=== PATIENT | male | born 1965 | race Two or more races ===

== ENCOUNTER 2017-07-20 10:12 | Inpatient (IN) | payer OTHER ==
--- NOTE | 2017-07-20 10:26 | PDOC ---
Attending Attestation - Resident Resident Name: Lyle Rosario - ED Attending Attestation I have performed the following: I have examined & evaluated the patient, The case was reviewed & discussed with the resident, I agree w/resident's findings & plan, Exceptions are as noted - HPI HPI: 07/20/17 12:01 Mr Marinelli is a 52-year-old male who presents to the emergency department with a complaint of chest pain. Patient states he awoke in his usual state of health, noted some epigastric pain which radiated up his chest. Describes the pain as burning/squeezing. Pain initially was 8 out of 10. Currently 4 out of 10. Patient states he previously had symptoms like this apparently 2 years ago but pain resolved. Denies fevers, chills. Symptoms were associated with nausea, no vomiting. Pain did not radiate to the arms or back. - Physicial Exam PE: 07/20/17 12:06 GENERAL: The patient is in no acute distress. EYES: PERRLA, EOMI, sclera anicteric, conjunctiva clear. ENT: Ears normal, nares patent, oropharynx clear without exudates. Moist mucous membranes. LUNGS: Breath sounds equal, clear to auscultation bilaterally. No wheezes, and no crackles. HEART:Regular rate and rhythm, normal S1 and S2 without murmur, rub or gallop. ABDOMEN: Soft, nontender, normoactive bowel sounds. EXTREMITIES: Normal range of motion, no edema. NEUROLOGICAL: Cranial nerves II through XII grossly intact. Normal speech. No focal neurological deficits. SKIN: Warm, Dry, normal turgor, no rashes or lesions noted. - Medical Decision Making 07/20/17 12:10 52-year-old male presented to emergency department with chest pain. Differential diagnosis is broad and includes: ACS, PE, GERD. Will do Labs EKG Chest x-ray Zantac EKG: Sinus rhythm, rate of 77 bpm axis is normal, intervals are normal, no ST elevation, evidence of incomplete right bundle branch block 07/20/17 12:12 Laboratory Tests 07/20/17 07/20/17 07/20/17 10:35 10:35 10:35 WBC 9.4 Hgb 15.4 Hct 45.4 Plt Count 191 PT with INR 10.90 INR 0.96 PTT (Actin FS) 27.6 Sodium 140 Potassium 4.2 Chloride 105 Carbon Dioxide 30 BUN 13 Creatinine 0.7 Random Glucose 102 D Creatine Kinase 1752 H CK-MB (CK-2) 32.926 H Troponin I < 0.02 Total Amylase 97 D Lipase 107 Will admit to hospitalist service. Though CK index is nml, CK is elevated Unclear if this is due to aggressive PT??? Clinical Impression: chest pain, initial presentation elevated CK, initial presentation
--- NOTE | 2017-07-20 10:33 | PDOC ---
History of Present Illness - General Chief Complaint: Chest Pain Stated Complaint: CHEST PAIN,ABD PAIN Time Seen by Provider: 07/20/17 10:22 - History of Present Illness Initial Comments: 07/20/17 10:24 52yo M with history of fatty liver disease and chronic back pain who is presenting today with substernal chest pain rated 6-7/10 noted to be burning in quality. He reports the pain lasting intermittantly throughout the morning, however the peak intensity lasted for "longer than 7 minutes." Pt reports he had some mild discomfort this morning and had one episode of nonbilious/ nonbloody emesis. Later in the day at physical therapy, pt was waiting to be picked up sitting and watching television. At that moment his chest discomfort intensified with similar quality and pt called for an ambulance. At the time of peak intensity, pt endorsed difficulty breathing with some diaphoresis. Pt denies any similar events in the past or taking any medication for his chest pain. Pt also denies any radiation to his arms, jaw, and back. Pt is a former smoker, however he quit over 30 years ago without any relapse. Pt denies any headache, nausea, blurred vision, SOB (currently), palpitations, abdominal pain , dysuria, polyuria, edematous legs, orthopnea. 07/20/17 11:02 Past History - Past Medical History Allergies/Adverse Reactions: Allergies Allergy/AdvReac Type Severity Reaction Status Date / Time No Known Allergies Allergy Verified 07/20/17 10:27 Home Medications: Ambulatory Orders Amoxicillin - [Amoxicillin 500mg Capsule -] 500 mg PO BID 12/07/15 Azathioprine 50 mg PO TID 12/07/15 Clarithromycin [Biaxin] 500 mg PO BID 12/07/15 Milk Thistle Seed Extract [Milk Thistle] 200 mg PO DAILY 12/07/15 Omeprazole 20 mg PO BID 12/07/15 Prednisone 40 mg PO DAILY 12/07/15 Vitamin E 400 unit PO DAILY 12/07/15 Liver Disease: Yes (PT STATES "LIVER PROBLEMS") - Immunization History Td Vaccination: Yes Immunization Up to Date: Yes - Suicide/Smoking/Psychosocial Hx Smoking Status: Yes Smoking History: Former smoker Years of Tobacco Use: 15 Have you smoked in the past 12 months: No Number of Cigarettes Smoked Daily: 30 If you are a former smoker, when did you quit?: 15 YRS AGO Cigars Per Day: 0 Hx Alcohol Use: No Drug/Substance Use Hx: No Substance Use Type: None Hx Substance Use Treatment: No *Physical Exam - Physical Exam Comments: 07/20/17 10:46 GEN: NAD, awake, alert, sitting in bed HEENT: EOMI, DEAN, moist mucosa, Neck: Soft, No JVD, no carotid bruits LUNGS: CTA bilaterally, no wheezes, rales, rhonchi, good inspiratory effort CARDIAC: RRR, no murmurs, S1 and S2 normal CHEST: Pain not reproduced upon palpation ABD: Soft, NT/ND, normoactive BS, no rebound, no guarding, no rebound, negative quintero's, no abdominal bruits NEURO: Nonfocal, strength 5/5 throughout, sensation grossly intact, facial symmetry, normal speech EXT: No edema, 2+ DP pulses Heart Score/ECG Review - History History: Slightly suspicious - Electrocardiogram EKG: Normal - Age Age: 45-65 - Risk Factors Based on the list above the patient has:: No risk factors known - Troponin Troponin: </= normal limit - Score Heart Score - Total: 1 #1 07/20/17 10:45 EKG reveals NSR @77bpm, normal axis, normal R-wave progression, no T wave abnormalities, incomplete RBBB (QRS 92ms), no ST elevations observed, QTc 441 --UNCHANGED FROM PREVIOUS 11/2015 ED Treatment Course - LABORATORY CBC & Chemistry Diagram: 07/20/17 10:35 07/20/17 10:35 - RADIOLOGY Radiology Studies Ordered: Category Date Time Status CHEST PA & LAT [RAD] Stat Radiology 07/20/17 10:23 Ordered Medical Decision Making - Medical Decision Making 07/20/17 10:40 52yo M with atypical chest pain Suspicious for GERD or other GI etiology --CBC, CMP, Lipase, amylase, history of gerd, episode of emesis --Zantac 300mg PO once --Will r/o cardiac event --Cardiac profile, EKG, CXR --Doubt dissection: no neurological deficits, no radiation to back --Doubt aneursym: former smoker, however physical exam reveals no bruits, no abdominal tenderness, no prior diagnosis, no fam hx --Doubt PE: SpO2 100% on RA, pt without tachycardia, no increased pain on inspiration 07/20/17 10:43 EKG reveals NSR @77bpm, normal axis, normal R-wave progression, no T wave abnormalities, incomplete RBBB (QRS 92ms), no ST elevations observed, QTc 441 --UNCHANGED FROM PREVIOUS 11/201507/20/17 11:28 Pt's pain markedly improved; awaiting labs; CXR awaiting 07/20/17 11:42 Troponin negative; HEART score 1 CK elevated --Given elevation will of CK/CK-MB will likely need tele OBS *DC/Admit/Observation/Transfer Diagnosis at time of Disposition: Chest pain at rest - Discharge Dispostion Condition at time of disposition: Stable Admit: Yes - Referrals - Patient Instructions - Post Discharge Activity
[2017-07-20] MEDS ORDERED: RANITIDINE HCL 150 MG TABLET (FP) PO ONE (10:35)
[2017-07-20] MEDS ORDERED: RANITIDINE HCL 150 MG TABLET (FP) ONE (10:45)
[2017-07-20 10:52] LABS: BASO % 0.6 % (0-2.0); EOS % 0.5 % (0-4.5); HEMATOCRIT 45.4 % (35.4-49); HEMOGLOBIN 15.4 GM/dL (11.7-16.9); LYMPH % 14.1 % (8-40); MCH 31.4 pg (25.7-33.7); MEAN CELL VOLUME 92.3 fl (80-96); MEAN PLT VOLUME 9.2 fl (7.5-11.1); MONO % 5.8 % (3.8-10.2); PLATELET COUNT 191 K/MM3 (134-434); RBC 4.92 M/mm3 (4.00-5.60); RDW 13.9 % (11.9-15.9); WHITE BLOOD COUNT 9.4 K/mm3 (4.0-10.0)
[2017-07-20 11:09] LABS: INR 0.96 (0.82-1.09); PROTHROMBIN TIME (PATIENT) 10.9 SEC (9.7-13.0)
[2017-07-20 11:11] LABS: ACTIVATED PTT 27.6 SECONDS (26.9-34.4)
[2017-07-20 11:21] LABS: ALBUMIN 3.9 g/dl (3.4-5.0); AMYLASE 97 U/L (25-115); ANION GAP 5 (8-16); BILIRUBIN,TOTAL 0.5 mg/dL (0.2-1.0); BLOOD UREA NITROGEN 13 mg/dL (7-18); CALCIUM 8.3 mg/dL (8.5-10.1); CHLORIDE 105 mmol/L (98-107); CO2 30 mmol/L (21-32); CREATININE 0.7 mg/dL (0.7-1.3); GLUCOSE,RANDOM 102 mg/dL (74-106); LIPASE 107 U/L (73-393); MAGNESIUM 1.9 mg/dL (1.8-2.4); POTASSIUM 4.2 mmol/L (3.5-5.1); SGOT/AST 40 U/L (15-37); SGPT/ALT 57 U/L (12-78); SODIUM 140 mmol/L (136-145); TOT PROT 7.2 g/dl (6.4-8.2)
[2017-07-20 11:33] LABS: ALK PHOS 50 U/L (45-117)
[2017-07-20] MEDS ORDERED: ASPIRIN 325 MG TABLET PO ONE (11:48)
[2017-07-20] MEDS ORDERED: ASPIRIN 325 MG TABLET ONE (12:05)
--- NOTE | 2017-07-20 12:07 | EKG ---
Test Reason : Blood Pressure : / mmHG Vent. Rate : 077 BPM Atrial Rate : 077 BPM P-R Int : 126 ms QRS Dur : 092 ms QT Int : 390 ms P-R-T Axes : -03 036 039 degrees QTc Int : 441 ms POOR DATA QUALITY, INTERPRETATION MAY BE ADVERSELY AFFECTED NORMAL SINUS RHYTHM INCOMPLETE RIGHT BUNDLE BRANCH BLOCK BORDERLINE ECG WHEN COMPARED WITH ECG OF 07-DEC-2015 08:00, NO SIGNIFICANT CHANGE WAS FOUND Confirmed by JOELLE ALEXANDER MD ([id number]) on 07/20/2017 12:07:29 PM Referred By: Confirmed By:JOELLE ALEXANDER MD
--- NOTE | 2017-07-20 14:36 | HP ---
CHIEF COMPLAINT: Chest pain PCP: Dr. Eladio Palma HISTORY OF PRESENT ILLNESS: 52 year-old male with a PMH significant for fatty liver disease and lower back pain secondary to an injury at work several weeks ago, walks with a cane. Presented to the ED today via EMS with a complaint of mid-chest pain. Patient relates he had a left-sided headache last night for which he took 2 Tylenol last night and 2 Tylenol this morning. When he got out of bed he vomited a very small amount of bilious fluid and the headache went away. He then developed a "burning" chest pain. He became concerned and called 911. The pain lasted about 20 minutes and improved when given Zantac in ED. Patient denies SOB, JARRELL, palpitations, diaphoresis, decreased exercise tolerance, orthopnea, and lower extremity edema. Patient was taking prescription strength ibuprofen regularly for his back pain but ran out, last dose about 2 weeks ago. Denies h/o ulcers, GERD, or other GI problems. Denies hematochezia, melena. Denies h/o migraine. ER course was notable for: (1) Troponin neg x 1 (2) Amylase/Lipase wnl (3) CPK 1752 (4) ASA 325mg x 1; Zantac x 1 Recent Travel: No PAST MEDICAL HISTORY: Fatty liver disease Low back pain w/NSAID use PAST SURGICAL HISTORY: None Social History: Smoking: quit 30 years ago Alcohol: no Drugs: no Family History: mother, father, 2 brothers, 4 children all a&w, no reported health problems Allergies No Known Allergies Allergy (Verified 07/20/17 10:27) HOME MEDICATIONS: Home Medications Medication Instructions Recorded Cyclobenzaprine HCl 5 mg PO DAILY 07/20/17 Famotidine 20 mg PO DAILY 07/20/17 REVIEW OF SYSTEMS CONSTITUTIONAL: Absent: fever, chills, diaphoresis, generalized weakness, malaise, loss of appetite, weight change HEENT: Absent: rhinorrhea, nasal congestion, throat pain, throat swelling, difficulty swallowing, mouth swelling, ear pain, eye pain, visual changes CARDIOVASCULAR: +chest pain Absent: chest pain, syncope, palpitations, irregular heart rate, lightheadedness , peripheral edema RESPIRATORY: Absent: cough, shortness of breath, dyspnea with exertion, orthopnea, wheezing, stridor, hemoptysis GASTROINTESTINAL: Absent: abdominal pain, abdominal distension, nausea, vomiting, diarrhea, constipation, melena, hematochezia GENITOURINARY: Absent: dysuria, frequency, urgency, hesitancy, hematuria, flank pain, genital pain MUSCULOSKELETAL: Absent: myalgia, arthralgia, joint swelling, back pain, neck pain SKIN: Absent: rash, itching, pallor HEMATOLOGIC/IMMUNOLOGIC: Absent: easy bleeding, easy bruising, lymphadenopathy, frequent infections ENDOCRINE: Absent: unexplained weight gain, unexplained weight loss, heat intolerance, cold intolerance NEUROLOGIC: +headache, vomiting x 1 Absent: headache, focal weakness or paresthesias, dizziness, unsteady gait, seizure, mental status changes, bladder or bowel incontinence PSYCHIATRIC: Absent: anxiety, depression, suicidal or homicidal ideation, hallucinations. PHYSICAL EXAMINATION Vital Signs - 24 hr 07/20/17 07/20/17 10:21 11:28 Temperature 98.2 F Pulse Rate 79 Pulse Rate [ 78 Apical] Respiratory 17 17 Rate Blood Pressure 166/97 Blood Pressure 123/78 [Left Arm] O2 Sat by Pulse 99 98 Oximetry (%) GENERAL: Awake, alert, and fully oriented, in no acute distress. HEAD: Normal with no signs of trauma. EYES: Pupils equal, round and reactive to light, extraocular movements intact, sclera anicteric, conjunctiva clear. No lid lag. EARS, NOSE, THROAT: Ears normal, nares patent, oropharynx clear without exudates. Moist mucous membranes. NECK: Normal range of motion, supple without lymphadenopathy, JVD, or masses. LUNGS: Breath sounds equal, clear to auscultation bilaterally. No wheezes, and no crackles. No accessory muscle use. HEART: Regular rate and rhythm, normal S1 and S2 ABDOMEN: Soft, nontender, not distended, normoactive bowel sounds, no guarding, no rebound, no masses. MUSCULOSKELETAL: Normal range of motion at all joints. No bony deformities or tenderness. No CVA tenderness. UPPER EXTREMITIES: 2+ pulses, warm, well-perfused. No cyanosis. No clubbing. No peripheral edema. LOWER EXTREMITIES: 2+ pulses, warm, well-perfused. No calf tenderness. No peripheral edema. NEUROLOGICAL: Cranial nerves II-XII intact. Normal speech. Laboratory Results - last 24 hr 07/20/17 07/20/17 07/20/17 10:35 10:35 10:35 WBC 9.4 RBC 4.92 Hgb 15.4 Hct 45.4 MCV 92.3 MCH 31.4 MCHC 34.0 RDW 13.9 Plt Count 191 MPV 9.2 Neutrophils % 79.0 D Lymphocytes % 14.1 D Monocytes % 5.8 Eosinophils % 0.5 D Basophils % 0.6 D PT with INR 10.90 INR 0.96 PTT (Actin FS) 27.6 Sodium 140 Potassium 4.2 Chloride 105 Carbon Dioxide 30 Anion Gap 5 L BUN 13 Creatinine 0.7 Creat Clearance w eGFR > 60 Random Glucose 102 D Calcium 8.3 L Magnesium 1.9 Total Bilirubin 0.5 D AST 40 H D ALT 57 D Alkaline Phosphatase 50 D Creatine Kinase 1752 H Creatine Kinase Index 1.8 CK-MB (CK-2) 32.926 H Troponin I < 0.02 Total Protein 7.2 D Albumin 3.9 D Total Amylase 97 D Lipase 107 ASSESSMENT/PLAN: 52 year-old male with a PMH significant for fatty liver disease and low back pain after an injury several months ago. Had been taking prescription strength ibuprofen daily up until about 2 weeks ago. Placed on observation for chest pain. Also with rhabdomyolysis. Chest pain --r/o ACS --troponin neg x 1, two pending --ECG: not suggestive of acute ischemic event --ASA given in ED --echo ordered --telemetry monitoring --Wells score zero --r/o GI --significant NSAID use up until 2 weeks ago --no signs of bleeding -- occult stool pending, h.pylori stool Ag ordered --follow h/h --protonix PO 40mg BID Rhabdomyolysis --CPK 1752 --no obvious etiology --check TSH, esr, crp urine tox, salicylates, acetaminophen --repeat liver profile now --IV fluids; will not bolus due to cardiac workup, echo still pending Headache --sounds migranous but given also has chest pain and rhabdo, concern for possible vasculitis? check esr, crp now Fatty liver disease --LFTs essentially wnl Low back pain --no NSAIDS, no Tylenol until tox results back --Lidocaine patch FEN Fluids: NS @ 125mL/hr Electrolytes: replete as indicated Nutrition: regular diet DVT prophylaxis: oob, ambulation Dispo: continues to require observation. Full code. Visit type - Emergency Visit Emergency Visit: Yes ED Registration Date: 07/20/17 Care time: The patient presented to the Emergency Department on the above date and was hospitalized for further evaluation of their emergent condition. - New Patient This patient is new to me today: Yes Date on this admission: 07/20/17 - Critical Care Critical Care patient: No Hospitalist Screening - Colonoscopy Questionnaire Colonoscopy Questionnaire: Colonoscopy Questionnaire - Patient: 50 - 75 years old and never had a screening colonoscopy: No History of colon or rectal polyps, or CA: No History of IBD, Crohn's disease or UC: No History of abdominal radiation therapy as a child: No - Relative: 1 with colon or rectal CA, or polyps at age 60 or younger: No Colon or rectal CA diagnosed at age 45 or younger: No Multiple relatives with colon or rectal CA: No - Outcome: Screening Result: Negative Screen
--- NOTE | 2017-07-20 15:25 | CON.CARD ---
Consult Consult Specialty:: Cardiology Referred by:: Dr. Rosario Reason for Consultation:: Chest pain - History of Present Illness Chief Complaint: Chest pain History of Present Illness: 52 year-old man with a PMHx of fatty liver disease and low back pain due to recent fall (4 weeks ago) who presented to ED 07/20/2017 with chest pain. The patient developed substernal chest pain at rest, rated 6-7/10 with burning sensation. He reports associated SOB and vomiting. His symptoms lasted about 30 minutes. He was chest pain free at the time of exam. His ECG shows sinus rhythm with incomplete RBBB and normal ST-T. CPK and MB are elevated. But troponin is negative. The patient has back pain after a recent fall. His exercise tolerance has been limited in the past 4 weeks. He denies palpitation, dizziness, syncope, near syncope, edema, orthopnea or PND. - History Source History Provided By: Patient Limitations to Obtaining History: No Limitations - Alcohol/Substance Use Hx Alcohol Use: No - Smoking History Smoking history: Former smoker Have you smoked in the past 12 months: No Aproximately how many cigarettes per day: 30 If you are a former smoker, when did you quit?: 15 YRS AGO Home Medications - Allergies Allergies/Adverse Reactions: Allergies Allergy/AdvReac Type Severity Reaction Status Date / Time No Known Allergies Allergy Verified 07/20/17 10:27 - Home Medications Home Medications: Ambulatory Orders Cyclobenzaprine HCl 5 mg PO DAILY 07/20/17 Famotidine 20 mg PO DAILY 07/20/17 Review of Systems - Review of Systems Cardiovascular: reports: Chest Pain Respiratory: reports: SOB Vital Signs: Vital Signs Temperature 98.2 F 07/20/17 10:21 Pulse Rate 78 07/20/17 11:28 Respiratory Rate 17 07/20/17 11:28 Blood Pressure 123/78 07/20/17 11:28 O2 Sat by Pulse Oximetry (%) 98 07/20/17 11:28 General: Well developed. Well nourished. No acute distress. Head: Normocephalic. Atraumatic, Eyes: PERRLA, EOMI. Sclerae anicteric. Conjunctivae clear. Neck: Supple. No JVD. No bruits. Heart: Normal S1, S2: Regularly regular rhythm and rate. No murmur. No gallop or rub. Lungs: Symmetrical air entry. Clear to auscultation. No crackle. No wheezing or rhonchi. Abdomen: Soft. Bowel sound positive. Non tender. No masses. Extremities: No edema. No clubbing or cyanosis. PD 2+, equal bilaterally. Neuro: Intact, no focal findings. AAO X3. - Other Data Labs, Other Data: CBC, BMP 07/20/17 10:35 07/20/17 10:35 INR, PTT INR 0.96 (0.82-1.09) 07/20/17 10:35 Troponin, BNP 07/20/17 10:35 Troponin I < 0.02 Troponin, BNP 07/20/17 10:35 Troponin I < 0.02 Imaging - Results EKG: Image Reviewed (Sinus rhythm with incomplete RBBB and normal ST-T.) Assessment/Plan 52 year-old man with a PMHx of fatty liver disease and low back pain due to recent fall (4 weeks ago) who presented to ED 07/20/2017 with chest pain. ECG shows sinus rhythm with incomplete RBBB and normal ST-T. CPK and MB are elevated. But troponin is negative. 1) Chest pain with atypical features. No risk factors of CAD. Myocardial ischemia is unlikely since troponin is negative and no ECG evidence of ischemia. -Obtain echo to rule out wall motion abnormalities. -Repeat troponin, CPK and MB. -Consider to rule out PE. We will follow the patient with you.
[2017-07-20] MEDS: SODIUM CHLORIDE 1,000 ML IV SCH (16:51)
[2017-07-20] MEDS ORDERED: ACETAMINOPHEN 325 MG TABLET (FP) ONE (16:52)
[2017-07-20] MEDS ORDERED: ACETAMINOPHEN 325 MG TABLET (FP) PO ONE (17:05)
[2017-07-20 18:56] VITALS: BMI 12.0
[2017-07-20 19:27] LABS: ALBUMIN 3.8 g/dl (3.4-5.0); BILIRUBIN,DIRECT < 0.2 mg/dL (0.0-0.2); BILIRUBIN,TOTAL 0.4 mg/dL (0.2-1.0); SGOT/AST 34 U/L (15-37); SGPT/ALT 53 U/L (12-78); TOT PROT 6.8 g/dl (6.4-8.2)
[2017-07-20 19:34] LABS: ACETAMINOPHEN 6.137 ug/mL; ALK PHOS 47 U/L (45-117); SALICYLATE < 1.700 mg/dL
[2017-07-20 19:37] LABS: N-TERMINAL BNP 47.33 pg/ml (5-125)
[2017-07-20] MEDS: LIDOCAINE 5% TOPICAL PATCH TP SCH (20:10)
[2017-07-20] MEDS: PANTOPRAZOLE 40 MG TABLET (FP) PO SCH (21:58)
[2017-07-20] MEDS: LIDOCAINE PATCH REMOVAL MC SCH (21:58)
[2017-07-21] MEDS: ACETAMINOPHEN 325 MG TABLET (FP) PO PRN ×2 (01:00→20:51)
[2017-07-21] MEDS ORDERED: ACETAMINOPHEN 325 MG TABLET (FP) ONE (01:10)
[2017-07-21 07:06] LABS: BASO % 0.4 % (0-2.0); EOS % 1.7 % (0-4.5); HEMATOCRIT 42.1 % (35.4-49); HEMOGLOBIN 14.4 GM/dL (11.7-16.9); LYMPH % 42.5 % (8-40); MCH 31.7 pg (25.7-33.7); MCHC 34.1 g/dl (32.0-35.9); MEAN PLT VOLUME 9.7 fl (7.5-11.1); MONO % 7.2 % (3.8-10.2); NEUT % 48.2 % (42.8-82.8); PLATELET COUNT 175 K/MM3 (134-434); RBC 4.52 M/mm3 (4.00-5.60)
[2017-07-21 07:15] LABS: ALBUMIN 3.6 g/dl (3.4-5.0); ANION GAP 8 (8-16); BLOOD UREA NITROGEN 17 mg/dL (7-18); CALCIUM 8.3 mg/dL (8.5-10.1); CHLORIDE 107 mmol/L (98-107); CO2 27 mmol/L (21-32); GLUCOSE,RANDOM 90 mg/dL (74-106); MAGNESIUM 2.1 mg/dL (1.8-2.4); SODIUM 142 mmol/L (136-145)
[2017-07-21 07:19] LABS: ALK PHOS 41 U/L (45-117); BILIRUBIN,TOTAL 0.5 mg/dL (0.2-1.0); CREATININE 0.7 mg/dL (0.7-1.3); SGOT/AST 31 U/L (15-37); SGPT/ALT 44 U/L (12-78); TOT PROT 6.2 g/dl (6.4-8.2)
[2017-07-21 08:50] LABS: COCAINE, UR NEGATIVE ng/ml (CUTOFF=300); METHADONE, UR NEGATIVE ng/ml (CUTOFF=300); OPIATES, URI NEGATIVE ng/ml (CUTOFF=300); PHENCYCLIDINE,URINE NEGATIVE ng/ml (CUTOFF=25); URINE AMPHETAMINES NEGATIVE ng/ml (CUTOFF=500); URINE BARBITURATES NEGATIVE ng/ml (CUTOFF=200); URINE BENZODIAZEPINES NEGATIVE ng/ml (CUTOFF=200)
[2017-07-21] MEDS: CYCLOBENZAPRINE HCL 10 MG TABLET (FP) PO SCH (09:29)
[2017-07-21] MEDS: LIDOCAINE 5% TOPICAL PATCH TP SCH (09:32)
[2017-07-21] MEDS: PANTOPRAZOLE 40 MG TABLET (FP) PO SCH ×2 (09:32→21:21)
[2017-07-21] MEDS ORDERED: FLU VACCINE QUAD 60 MCG/0.5 ML (MDV 17-18) IM ONE (10:00)
[2017-07-21] MEDS: SODIUM CHLORIDE 1,000 ML IV SCH ×2 (12:49→17:25)
--- NOTE | 2017-07-21 12:57 | EKG ---
Test Reason : Blood Pressure : / mmHG Vent. Rate : 074 BPM Atrial Rate : 074 BPM P-R Int : 148 ms QRS Dur : 086 ms QT Int : 398 ms P-R-T Axes : 056 042 051 degrees QTc Int : 441 ms NORMAL SINUS RHYTHM NORMAL ECG WHEN COMPARED WITH ECG OF 20-JUL-2017 10:21, INCOMPLETE RIGHT BUNDLE BRANCH BLOCK IS NO LONGER PRESENT Confirmed by VERO CARTAGENA MD ([id number]) on 07/21/2017 12:56:43 PM Referred By: Confirmed By:VERO CARTAGENA MD
--- NOTE | 2017-07-21 14:56 | PN ---
Progress Note, Physician Chief Complaint: Patient appears comfortable. He has no recurrent chest or abdominal pain. He denies SOB or palpitation. Tele shows sinus rhythm without arrhythmia. History of Present Illness: 52 year-old man with a PMHx of fatty liver disease and low back pain due to recent fall (4 weeks ago) who presented to ED 07/20/2017 with chest pain. ECG shows sinus rhythm with incomplete RBBB and normal ST-T. CPK and MB are elevated. But troponin is negative. Echocardiogram 07/21/2017 showed normal LV size, wall motion and systolic function. - Current Medication List Current Medications: Active Medications Acetaminophen (Tylenol -) 650 mg PO Q6H PRN PRN Reason: PAIN OR FEVER Last Admin: 07/21/17 01:00 Dose: 650 mg Cyclobenzaprine HCl (Flexeril -) 5 mg PO DAILY [facility] Last Admin: 07/21/17 09:29 Dose: 5 mg Sodium Chloride (Normal Saline -) 1,000 mls @ 125 mls/hr IV ASDIR [facility] Last Admin: 07/21/17 12:49 Dose: 125 mls/hr Lidocaine (Lidoderm Patch -) 1 patch TP DAILY [facility] Last Admin: 07/21/17 09:32 Dose: 1 patch Miscellaneous (Lidoderm Patch Removal) 1 each MC DAILY@2200 [facility] Last Admin: 07/20/17 21:58 Dose: Not Given Pantoprazole Sodium (Protonix -) 40 mg PO BID [facility] Last Admin: 07/21/17 09:32 Dose: 40 mg - Objective Vital Signs: Vital Signs Temperature 98 F 07/21/17 09:00 Pulse Rate 77 07/21/17 09:00 Respiratory Rate 18 07/21/17 09:00 Blood Pressure 133/88 07/21/17 09:00 O2 Sat by Pulse Oximetry (%) 98 07/21/17 10:00 General: Well developed. Well nourished. No acute distress. Head: Normocephalic. Atraumatic, Eyes: PERRLA, EOMI. Sclerae anicteric. Conjunctivae clear. Neck: Supple. No JVD. No bruits. Heart: Normal S1, S2: Regularly regular rhythm and rate. No murmur. No gallop or rub. Lungs: Symmetrical air entry. Clear to auscultation. No crackle. No wheezing or rhonchi. Abdomen: Soft. Bowel sound positive. Non tender. No masses. Extremities: No edema. No clubbing or cyanosis. PD 2+, equal bilaterally. Neuro: Intact, no focal findings. AAO X3. Labs: CBC, BMP 07/21/17 06:20 07/21/17 06:20 INR, PTT INR 0.96 (0.82-1.09) 07/20/17 10:35 Assessment/Plan 52 year-old man with a PMHx of fatty liver disease and low back pain due to recent fall (4 weeks ago) who presented to ED 07/20/2017 with chest pain. ECG shows sinus rhythm with incomplete RBBB and normal ST-T. CPK and MB are elevated. But troponin is negative. Echocardiogram 07/21/2017 showed normal LV size, wall motion and systolic function. 1) Chest pain with atypical features. No risk factors of CAD. It is not acute coronary syndrome. He has no recurrent chest pain. Serial troponin is negative and no ECG evidence of ischemia. Echo is normal without segmental wall motion abnormalities. Tele is negative. May d/c tele. No further cardiac test recommended at this time. 2) Rhabdomyolysis of unclear etiology. CPK is trending down now. Renal function is normal. Agree IV hydration and may change to oral hydration. Please call us for reconsult as needed.
--- NOTE | 2017-07-21 16:07 | PN ---
Progress Note (short form) - Note Progress Note: Subjective: The patient was seen and examined at the bedside, he has no complaints at this time. He reports being a little "sleepy" CPK trending down, encouraged po fluids, remains on IV fluids Current Medications Generic Name Dose Route Start Last Admin Trade Name Katy PRN Reason Stop Dose Admin Acetaminophen 650 mg 07/21/17 06:00 07/21/17 01:00 Tylenol - PO 650 mg Q6H PRN Administration PAIN OR FEVER Cyclobenzaprine HCl 5 mg 07/21/17 10:00 07/21/17 09:29 Flexeril - PO 5 mg DAILY LILI Administration Sodium Chloride 1,000 mls @ 125 mls/hr 07/20/17 16:30 07/21/17 12:49 Normal Saline - IV 125 mls/hr ASDIR LILI Administration Lidocaine 1 patch 07/20/17 17:15 07/21/17 09:32 Lidoderm Patch - TP 1 patch DAILY LILI Administration Miscellaneous 1 each 07/20/17 22:00 07/20/17 21:58 Lidoderm Patch Removal MC Not Given DAILY@2200 LILI Pantoprazole Sodium 40 mg 07/20/17 22:00 07/21/17 09:32 Protonix - PO 40 mg BID LILI Administration Objective: Vital Signs Period Temp Pulse Resp BP Sys/Novak Pulse Ox Last 24 Hr 97.8 F-99.4 F 68-82 16-20 106-143/72-94 97-98 Physical Exam: General: NAD, A&Ox3 Lungs: CTA bilaterally Heart: RRR, S1S2 Abd: Soft, non-tender, non-distended. Normoactive bowel sounds Ext: Warm, well-perfused. 2+ DP/PT bilaterally Neuro: CN 2-12 intact CBCD WBC 6.0 K/mm3 (4.0-10.0) D 07/21/17 06:20 RBC 4.52 M/mm3 (4.00-5.60) 07/21/17 06:20 Hgb 14.4 GM/dL (11.7-16.9) 07/21/17 06:20 Hct 42.1 % (35.4-49) 07/21/17 06:20 MCV 93.0 fl (80-96) 07/21/17 06:20 MCHC 34.1 g/dl (32.0-35.9) 07/21/17 06:20 RDW 14.0 % (11.9-15.9) 07/21/17 06:20 Plt Count 175 K/MM3 (134-434) 07/21/17 06:20 MPV 9.7 fl (7.5-11.1) 07/21/17 06:20 CMP Sodium 142 mmol/L (136-145) 07/21/17 06:20 Potassium 4.0 mmol/L (3.5-5.1) 07/21/17 06:20 Chloride 107 mmol/L (98-107) 07/21/17 06:20 Carbon Dioxide 27 mmol/L (21-32) 07/21/17 06:20 Anion Gap 8 (8-16) 07/21/17 06:20 BUN 17 mg/dL (7-18) D 07/21/17 06:20 Creatinine 0.7 mg/dL (0.7-1.3) 07/21/17 06:20 Creat Clearance w eGFR > 60 (>60) 07/21/17 06:20 Random Glucose 90 mg/dL (74-106) 07/21/17 06:20 Calcium 8.3 mg/dL (8.5-10.1) L 07/21/17 06:20 Total Bilirubin 0.5 mg/dL (0.2-1.0) D 07/21/17 06:20 AST 31 U/L (15-37) 07/21/17 06:20 ALT 44 U/L (12-78) 07/21/17 06:20 Alkaline Phosphatase 41 U/L (45-117) L 07/21/17 06:20 Total Protein 6.2 g/dl (6.4-8.2) L 07/21/17 06:20 Albumin 3.6 g/dl (3.4-5.0) 07/21/17 06:20 CARDIAC ENZYMES Creatine Kinase 1275 IU/L (39-308) H 07/21/17 06:20 Troponin I < 0.02 ng/ml (0.00-0.05) 07/20/17 21:45 Assessment: This is a 52 year old male with PMHx of fatty liver disease who presented to the ED with mid chest pain Plan: 1) Atypical chest pain - Resolved - Well's score 0 - No signs of ACS - Trop x3 negative - ECHO reviewed - Appreciate cardiology consult 2) Rhabdomyolysis - CPK trending down - Continue IV fluids - Encourage po fluid intake 3) Headache - Resolved - Low suspicion for vasculitis given ESR/CRP wnl 3) F/E/N: - Regular diet - Monitor electrolytes 4) Prophylaxis: - OOB ambulating 5) Dispo: - Requires continued inpatient care CODE STATUS: FULL CODE Visit type - Emergency Visit Emergency Visit: Yes ED Registration Date: 07/21/17 Care time: The patient presented to the Emergency Department on the above date and was hospitalized for further evaluation of their emergent condition. - New Patient This patient is new to me today: Yes Date on this admission: 07/21/17 - Critical Care Critical Care patient: No
[2017-07-21] MEDS: LIDOCAINE PATCH REMOVAL MC SCH (21:21)
[2017-07-22] MEDS ORDERED: SODIUM CHLORIDE 1,000 ML IV STA (08:24)
[2017-07-22] MEDS: PANTOPRAZOLE 40 MG TABLET (FP) PO SCH (09:27)
[2017-07-22] MEDS: CYCLOBENZAPRINE HCL 10 MG TABLET (FP) PO SCH (09:27)
[2017-07-22] MEDS: LIDOCAINE 5% TOPICAL PATCH TP SCH (09:28)
[2017-07-22] MEDS: SODIUM CHLORIDE 1,000 ML IV SCH (11:59)
--- NOTE | 2017-07-22 14:05 | PN ---
Progress Note (short form) - Note Progress Note: Subjective: The patient was seen and examined at the bedside, he has no complaints at this time. Current Medications Generic Name Dose Route Start Last Admin Trade Name Katy PRN Reason Stop Dose Admin Acetaminophen 650 mg 07/21/17 06:00 07/21/17 20:51 Tylenol - PO 650 mg Q6H PRN Administration PAIN OR FEVER Cyclobenzaprine HCl 5 mg 07/21/17 10:00 07/22/17 09:27 Flexeril - PO 5 mg DAILY LILI Administration Sodium Chloride 1,000 mls @ 125 mls/hr 07/20/17 16:30 07/22/17 11:59 Normal Saline - IV 125 mls/hr ASDIR LILI Administration Lidocaine 1 patch 07/20/17 17:15 07/22/17 09:28 Lidoderm Patch - TP 1 patch DAILY LILI Administration Miscellaneous 1 each 07/20/17 22:00 07/21/17 21:21 Lidoderm Patch Removal MC 1 each DAILY@2200 LILI Administration Pantoprazole Sodium 40 mg 07/20/17 22:00 07/22/17 09:27 Protonix - PO 40 mg BID LILI Administration Objective: Vital Signs Period Temp Pulse Resp BP Sys/Novak Pulse Ox Last 24 Hr 98 F-99.2 F 81-96 15-18 121-140/76-87 97-98 Physical Exam: General: NAD, A&Ox3 Lungs: CTA bilaterally Heart: RRR, S1S2 Abd: Soft, non-tender, non-distended. Normoactive bowel sounds Ext: Warm, well-perfused. 2+ DP/PT bilaterally Neuro: CN 2-12 intact CBCD WBC 6.0 K/mm3 (4.0-10.0) D 07/21/17 06:20 RBC 4.52 M/mm3 (4.00-5.60) 07/21/17 06:20 Hgb 14.4 GM/dL (11.7-16.9) 07/21/17 06:20 Hct 42.1 % (35.4-49) 07/21/17 06:20 MCV 93.0 fl (80-96) 07/21/17 06:20 MCHC 34.1 g/dl (32.0-35.9) 07/21/17 06:20 RDW 14.0 % (11.9-15.9) 07/21/17 06:20 Plt Count 175 K/MM3 (134-434) 07/21/17 06:20 MPV 9.7 fl (7.5-11.1) 07/21/17 06:20 CMP Sodium 142 mmol/L (136-145) 07/21/17 06:20 Potassium 4.0 mmol/L (3.5-5.1) 07/21/17 06:20 Chloride 107 mmol/L (98-107) 07/21/17 06:20 Carbon Dioxide 27 mmol/L (21-32) 07/21/17 06:20 Anion Gap 8 (8-16) 07/21/17 06:20 BUN 17 mg/dL (7-18) D 07/21/17 06:20 Creatinine 0.7 mg/dL (0.7-1.3) 07/21/17 06:20 Creat Clearance w eGFR > 60 (>60) 07/21/17 06:20 Random Glucose 90 mg/dL (74-106) 07/21/17 06:20 Calcium 8.3 mg/dL (8.5-10.1) L 07/21/17 06:20 Total Bilirubin 0.5 mg/dL (0.2-1.0) D 07/21/17 06:20 AST 31 U/L (15-37) 07/21/17 06:20 ALT 44 U/L (12-78) 07/21/17 06:20 Alkaline Phosphatase 41 U/L (45-117) L 07/21/17 06:20 Total Protein 6.2 g/dl (6.4-8.2) L 07/21/17 06:20 Albumin 3.6 g/dl (3.4-5.0) 07/21/17 06:20 CARDIAC ENZYMES Creatine Kinase 1293 IU/L (39-308) H 07/22/17 12:40 Troponin I < 0.02 ng/ml (0.00-0.05) 07/20/17 21:45 Assessment: This is a 52 year old male with PMHx of fatty liver disease who presented to the ED with mid chest pain Plan: 1) Atypical chest pain - Resolved - Well's score 0 - No signs of ACS - Trop x3 negative - ECHO reviewed - Appreciate cardiology consult; can d/c tele 2) Rhabdomyolysis - CPK stable but elevated, unresponsive to IV fluids - Will consult rheumatology 3) Headache - Resolved - Low suspicion for vasculitis given ESR/CRP wnl 3) F/E/N: - Regular diet - Monitor electrolytes 4) Prophylaxis: - OOB ambulating 5) Dispo: - Requires continued inpatient care CODE STATUS: FULL CODE Visit type - Emergency Visit Emergency Visit: Yes ED Registration Date: 07/21/17 Care time: The patient presented to the Emergency Department on the above date and was hospitalized for further evaluation of their emergent condition. - New Patient This patient is new to me today: No - Critical Care Critical Care patient: No
--- NOTE | 2017-07-22 14:26 | DS ---
Physical Examination Vital Signs: Vital Signs Temperature 98 F 07/22/17 10:00 Pulse Rate 86 07/22/17 10:00 Respiratory Rate 18 07/22/17 10:00 Blood Pressure 140/76 07/22/17 10:00 O2 Sat by Pulse Oximetry (%) 97 07/22/17 09:00 Labs: CBC, BMP 07/21/17 06:20 07/21/17 06:20 Discharge Summary Reason For Visit: CHEST PAIN AT REST Current Active Problems Chest pain at rest (Acute) Hospital Course: Discussed elevated CPK with Dr. Milligan who recommends discharge with outpatient follow-up for EMG. Patient has had elevated CPK in past, likely chronically elevated. Condition: Improved - Instructions Diet, Activity, Other Instructions: Please return to the ED with new, persistent, or worsening symptoms. Please follow-up with providers as indicated. Referrals: Eladio Palma MD [Primary Care Provider] - (Please follow-up with your primary care provider on Saturday 07/15 to have your CPK level rechecked) Matias Milligan MD [Staff Physician] - (Please follow-up with Dr. Milligan within 3-5 days for further evaluation of your elevated CPK level and to schedule an outpatient EMG) Disposition: HOME - Home Medications Comprehensive Discharge Medication List: Ambulatory Orders Cyclobenzaprine HCl 5 mg PO DAILY 07/20/17 Famotidine 20 mg PO DAILY 07/20/17
[2017-07-22 15:33] VITALS: BP 145/68; PULSE 89; TEMP 98.2
== END 2017-07-22 16:34 | disposition home or self-care (01) | DRG 203 ==
LOC: JER 10:12 → JERBED 12:15 → J4W 20:22 → OBSVTOIN 07-21 14:36
PROVIDERS: ADMIT Internal Medicine; ATTEND Registered Nurse
DX: R07.89 Other chest pain (principal); M62.82 Rhabdomyolysis; K76.0 Fatty (change of) liver, not elsewhere classified; Z87.891 Personal history of nicotine dependence; I45.10 Unspecified right bundle-branch block; R51 Headache; M54.5 Low back pain
CPT/HCPCS: 36415; 71046-TC-FY; 80053; 80076; 80307; 82150; 82550; 82553; 83690; 83735; 83880; 84443; 84484; 85025; 85610; 85651; 85730; 86140; 87252; 90688; 93005; 93010; 93306-TC; 99283-25; G0008; G0378; J7030

== ENCOUNTER 2018-02-20 15:15 | Emergency (ER) | payer OTHER ==
[2018-02-20 15:28] VITALS: TEMP 98.3; BMI 22.2
[2018-02-20] MEDS ORDERED: SODIUM CHLORIDE 0.9% 1000 ML INFUS.BAG IV ONE (15:42)
[2018-02-20] MEDS ORDERED: ACETAMINOPHEN 1000 MG/100 ML VIAL (NON FORMULARY) IVPB ONE (15:42)
[2018-02-20] MEDS ORDERED: morphine CARPU-JECT 4 MG/1 ML DISP.SYRIN IVPUSH ONE (15:42)
[2018-02-20] MEDS ORDERED: ONDANSETRON 4 MG/2 ML VIAL IVPUSH ONE (15:49)
--- NOTE | 2018-02-20 15:57 | PDOC ---
History of Present Illness - General Chief Complaint: Pain Stated Complaint: ABD PAIN - History of Present Illness Initial Comments: Golden Marinelli is a 53yo man with a PMH of fatty liver and who reports diabetes ( not documented in chart) who presents with acute onset of LLQ pain that radiates to the left groin. He first experienced the pain about 1.5 hours ago. The pain comes and goes and is "burning" in nature. He has additionally had nausea and 2x vomiting since the pain started, but he denies any dysuria, hematuria, frequency, recent constipation or diarrhea (reports daily BM). He has had a colonoscopy and is not aware of any abnormalities. He has never had abdominal surgery. Prior to the pain starting this afternoon, Mr Marinelli was in his normal state of rose. He was eating and drinking normally, and he denies recent fevers/chills, prior abdominal pain, or any other symptoms. He has not had any unusual foods, recent travel, or known sick contacts. Past History - Past Medical History Allergies/Adverse Reactions: Allergies Allergy/AdvReac Type Severity Reaction Status Date / Time No Known Allergies Allergy Verified 02/20/18 15:28 Home Medications: Ambulatory Orders Aspirin [Adult Aspirin Regimen] 81 mg PO DAILY 02/20/18 Atorvastatin Ca [Lipitor] 10 mg PO HS 02/20/18 Lisinopril [Prinivil] 5 mg PO DAILY 02/20/18 COPD: No Diabetes: Yes (TYPE II) Liver Disease: Yes (PT STATES "LIVER PROBLEMS") - Immunization History Td Vaccination: Yes Immunization Up to Date: Yes - Suicide/Smoking/Psychosocial Hx Smoking Status: Yes Smoking History: Former smoker Years of Tobacco Use: 15 Have you smoked in the past 12 months: No Number of Cigarettes Smoked Daily: 30 If you are a former smoker, when did you quit?: 15 YRS AGO Cigars Per Day: 0 Information on smoking cessation initiated: No Hx Alcohol Use: No Drug/Substance Use Hx: No Substance Use Type: None Hx Substance Use Treatment: No Review of Systems - Review of Systems Comments:: General: No fevers, no chills, no weight or appetite change, no malaise HEENT: No changes in vision, no changes in hearing, no congestion, no sore throat CV: No chest pain, no palpitations, no LE edema Pulm: No SOB, no cough, no wheezing GI: No nausea or vomiting, no change in bowel habits, no melena - See HPI : No frequency, no urgency, no dysuria Musc: No back pain, no joint swelling, no recent injury Skin: No rash, no lesions, no erythema Endo: No excessive thirst, no heat/cold intolerance Heme: No unusual bruising or bleeding, no swollen glands Neuro: No syncope, no numbness/tingling, no focal weakness Vasc: No claudication Psych: No recent change in mood, no SI or HI *Physical Exam - Vital Signs Last Vital Signs Temp Pulse Resp BP Pulse Ox 98.3 F 83 18 150/99 97 02/20/18 15:22 02/20/18 15:22 02/20/18 15:22 02/20/18 15:22 02/20/18 15:22 - Physical Exam Comments: General: Uncomfortable, writhing in pain HEENT: PERRL, EOMI, MMM, voice normal, normal neck ROM, no LAD Cards: RRR, no murmur appreciated Pulm: Comfortable on room air, clear to auscultation bilaterally Abd: Soft, nondistended. TTP in LLQ. No rigidity, no guarding, or peritoneal signs. No hernia appreciated. : No CVA tenderness. Normal external genitalia w/o swelling, erythema, or tenderness Ext: Atraumatic. No LE edema. ROM intact. Strength 5/5 and equal bilaterally Vasc: Extremities WWP. Skin: Normal color, no rashes or lesions Neuro: A&Ox3, CN grossly intact, normal speech, motor/sensory grossly intact and symmetric Psych: Mood appropriate to situation ED Treatment Course - LABORATORY CBC & Chemistry Diagram: 02/20/18 16:00 02/20/18 16:00 Medical Decision Making - Medical Decision Making 02/20/18 15:53 Golden Marinelli is a 53yo man with a history of fatty liver, ?DM who presents with acute onset of LLQ pain that radiates to the groin and vomiting that started about 1.5 hours ago. - Could be due to diverticulitis, possible kidney stone. Denies change in BM, no urinary symptoms, no hernia on exam. - CBC, CMP, UA, urine culture ordered for evaluation. - 1L NS bolus, zofran, IV acetaminophen, IV morphine for symptoms 02/20/18 16:28 - Morphine held as pain improved significantly with IV acetaminophen - Genital exam completed with Dr Benavides. No abnormalities, no swelling/erythema/pain , no inguinal hernia. - CT abd/pelvis with contrast ordered to evaluate 02/20/18 17:55 - Labs reviewed. No abnormalities except elevated Cr to 1.5 from 0.7 at baseline. As patient had no previous symptoms, appears well-hydrated, and has no obvious abnormalities on labs so far, most likely SHOAIB due to urinary pathology. UA still pending. - Spoke with special effects technician; will not give IV contrast with elevated Cr unless an MD signs permission. However, should give IV contrast despite SHOAIB. Cr is elevated to 1.5 from baseline normal; however, patient has already received 1L IV fluids. Contrast in this patient is low risk and is likely to provide useful diagnostic information. - Discussed rationale for IV contrast with pt. 02/20/18 18:38 - CT completed, read pending - UA negative - Dispo depending on CT results 02/20/18 21:05 - Patient reported that pain is returning. Tramadol ordered for additional pain control - CT read still pending 02/20/18 21:48 - CT read completed. Shows 3-4mm left ureteral stone with minimal hydronephrosis - Discussed with patient - Plan to d/c home with appropriate follow up. Seen and discussed with Dr Benavides and Dr Oliva. Marychuy Freedman PGY1 *DC/Admit/Observation/Transfer Diagnosis at time of Disposition: Nephrolithiasis - Discharge Dispostion Disposition: HOME Condition at time of disposition: Stable Decision to Admit order: No - Referrals Referrals: Eladio Palma MD [Primary Care Provider] - - Patient Instructions Printed Discharge Instructions: DI for Kidney Stones Additional Instructions: Discharge Instructions: You were seen in the emergency department for left lower abdominal pain. You had blood tests and a CT scan. These showed that you have a left ureteral kidney stone (a stone in the tube between the kidney and bladder). This stone should pass without any intervention. Home Care: - Drink plenty of fluids - Use medications such as ibuprofen 600mg every 6 hours (Advil or Motrin) or acetaminophen (Tylenol) up to 1000mg every 6 hours for pain control. Do NOT take more than 4000mg of acetaminophen per day. Follow Up: - You should see your primary physician within the next week. You will need follow up kidney function tests to make sure that your kidneys are working normally again. Your regular doctor may also want you to see a youth support worker or monitor you for additional stones. - Call your doctor if you have worsening pain, the stone does not pass within 1- 2 days, or you start to have blood in your urine. - Seek immediate medical care for chest pain, shortness of breath, or any medical emergency. - Post Discharge Activity
[2018-02-20] MEDS ORDERED: ACETAMINOPHEN INJECTION 100 ML IVPB ONE (16:08)
[2018-02-20] MEDS ORDERED: ONDANSETRON 4 MG/2 ML VIAL ONE (16:08)
[2018-02-20 16:33] LABS: ALBUMIN 4.3 g/dl (3.4-5.0); ALK PHOS 41 U/L (45-117); ANION GAP 12 MMOL/L (8-16); BILIRUBIN,TOTAL 0.6 mg/dL (0.2-1); BLOOD UREA NITROGEN 17 mg/dL (7-18); CALCIUM 9.5 mg/dL (8.5-10.1); CHLORIDE 108 mmol/L (98-107); CO2 23 mmol/L (21-32); CREATININE 1.5 mg/dL (0.55-1.3); GLUCOSE,RANDOM 113 mg/dL (74-106); POTASSIUM 4.2 mmol/L (3.5-5.1); SGOT/AST 31 U/L (15-37); SGPT/ALT 55 U/L (13-61); SODIUM 142 mmol/L (136-145); TOT PROT 7.3 g/dl (6.4-8.2)
[2018-02-20 16:39] LABS: BASO % 0.4 % (0-2.0); EOS % 0.3 % (0-4.5); HEMOGLOBIN 15.7 GM/dL (11.7-16.9); MCH 33.3 pg (25.7-33.7); MCHC 34.9 g/dl (32.0-35.9); MEAN CELL VOLUME 95.4 fl (80-96); MEAN PLT VOLUME 10.1 fl (7.5-11.1); MONO % 8.2 % (3.8-10.2); NEUT % 70.1 % (42.8-82.8); PLATELET COUNT 244 K/MM3 (134-434); RBC 4.71 M/mm3 (4.00-5.60); RDW 14.6 % (11.9-15.9); WHITE BLOOD COUNT 9.5 K/mm3 (4.0-10.0)
--- NOTE | 2018-02-20 16:47 | PDOC ---
Attending Attestation - Resident Resident Name: Marychuy Freedman - ED Attending Attestation I have performed the following: I have examined & evaluated the patient, The case was reviewed & discussed with the resident, I agree w/resident's findings & plan, Exceptions are as noted - HPI HPI: 02/20/18 16:50 The patient is a 53 year old male, with a significant past medical history of DM and fatty liver, who presents to the emergency department with 1.5 hours of acute onset LLQ pain with associated nausea and vomiting. He describes his pain as a burning sensation radiating from his L flank to his groin. He notes that he feels a "ball" in his L groin. Denies any scrotal pain. He denies any recent fevers, chills, headache or dizziness. He denies any recent diarrhea or constipation. He denies any recent chest pain or shortness of breath. He denies any recent dysuria, frequency, urgency or hematuria. Allergies: NKDA Social History: Former smoker. Primary Care Physician: Dr. Palma - Physicial Exam PE: 02/20/18 16:51 GENERAL: Awake, alert, and fully oriented, in no acute distress. HEAD: No signs of trauma EYES: PERRLA, EOMI, sclera anicteric, conjunctiva clear ENT: Auricles normal inspection, hearing grossly normal, nares patent, oropharynx clear without exudates. Moist mucosa NECK: Nontender, no stepoffs, Normal ROM, supple, no lymphadenopathy, JVD, or masses LUNGS: Breath sounds equal, clear to auscultation bilaterally. No wheezes, and no crackles HEART: Regular rate and rhythm, normal S1 and S2, no murmurs, rubs or gallops ABDOMEN: + LLQ tenderness, no palpable masses, normoactive bowel sounds. No guarding, no rebound. : normal scrotum, no inguinal masses, normal cremaster reflex EXTREMITIES: Normal range of motion, no edema. No clubbing or cyanosis. No cords, erythema, or tenderness NEUROLOGICAL: Cranial nerves II through XII intact. 5/5 strength and sensation in all extremities, Normal speech, normal gait, normal cerebellar function SKIN: Warm, Dry, normal turgor, no rashes or lesions noted. - Medical Decision Making 02/20/18 16:55 53 M with sudden onset L groin pain radiating to L flank. Possible kidney stone. Also consider inguinal hernia, though no masses palpable on exam. However , pt was given morphine prior to my exam and reported significant improvement after this. Pt may have had hernia that has now been reduced. - Labs, UA - CTAP - IVF, pain control 02/20/18 19:02 Labs wnl UA negative CT pending
[2018-02-20 17:04] LABS: URINE APPEARANCE CLEAR; URINE BILIRUBIN NEGATIVE (<2.0 mg/dL); URINE COLOR YELLOW; URINE GLUCOSE (UA) NEGATIVE (NEGATIVE); URINE KETONE NEGATIVE (NEGATIVE); URINE LEUK ESTERASE NEGATIVE (NEGATIVE); URINE NITRITE NEGATIVE (NEGATIVE); URINE PROTEIN NEGATIVE (NEGATIVE); URINE UROBILINOGEN NEGATIVE mg/dL (0.2-1.0)
[2018-02-20] MEDS ORDERED: traMADol HCL 50 MG TABLET PO ONE (20:16)
[2018-02-20] MEDS ORDERED: traMADol HCL 50 MG TABLET ONE (21:12)
[2018-02-20 22:04] VITALS: BP 137/87; PULSE 82
== END 2018-02-20 22:04 | disposition home or self-care (01) ==
LOC: JER 15:15
PROC: 3E033NZ Introduction of Analgesics, Hypnotics, Sedatives into Peripheral Vein, Percutaneous Approach (ICD-10-PCS; principal; 2018-02-20)
PROC: 3E033GC Introduction of Other Therapeutic Substance into Peripheral Vein, Percutaneous Approach (ICD-10-PCS; 2018-02-20)
DX: N13.2 Hydronephrosis with renal and ureteral calculous obstruction (principal); E11.9 Type 2 diabetes mellitus without complications; K76.0 Fatty (change of) liver, not elsewhere classified
CPT/HCPCS: 36415; 74177-TC; 80053; 81003; 85025; 87086; 96374; 96375; 99283-25; J0131; J7030